=== PATIENT | male | born 1985 | race Caucasian/White ===

== ENCOUNTER 2023-11-26 07:28 | Emergency (ER) | payer BC ==
[2023-11-26] MEDS: Ondansetron 4 MG/2 ML SDV IVPUSH ONE (08:05)
[2023-11-26] MEDS: Albuterol/Ipratropium 3.0-0.5 MG/3 ML Neb Soln NEB ONE ×2 (08:05→08:31)
[2023-11-26] MEDS: Sodium Chloride 0.9% 2.5 ML Syringe FLUSH PRN (08:05)
[2023-11-26] MEDS: Lactated Ringers 1,000 ML IV ONE (08:05)
[2023-11-26 08:06] LABS: BASOPHILS ABSOLUTE AUTO 0.08 K/uL (0.00-0.20); BASOPHILS PERCENT AUTO 1.3 % (0.0-1.0); EOSINOPHILS ABSOLUTE AUTO 0.17 K/uL (0.00-0.45); EOSINOPHILS PERCENT AUTO 2.7 % (0.0-6.0); HEMATOCRIT 46.7 % (42.0-52.0); HEMOGLOBIN 16.2 g/dL (14.0-18.0); IMMATURE GRAN ABSOLUTE AUTO 0.02 K/uL (0.00-0.05); IMMATURE GRAN PERCENT AUTO 0.3 % (0.0-0.4); LYMPHOCYTES ABSOLUTE AUTO 2.67 K/uL (1.00-4.80); LYMPHOCYTES PERCENT AUTO 42.7 % (24.0-44.0); MEAN CORPUSCULAR HEMOGLOBIN 32.1 pg (28.0-32.0); MEAN CORPUSCULAR HGB CONC 34.7 g/dL (32.0-36.0); MEAN CORPUSCULAR VOLUME 92.7 fL (83.0-99.0); MONOCYTES PERCENT AUTO 11.2 % (0.0-8.0); NEUTROPHILS ABSOLUTE AUTO 2.61 K/uL (1.80-7.70); NEUTROPHILS PERCENT AUTO 41.8 % (41.0-71.0); PLATELET COUNT,PLT 270 K/uL (150-400); RED BLOOD CELL COUNT 5.04 M/uL (4.52-5.90); WHITE BLOOD CELL COUNT,WBC 6.25 K/uL (3.9-11.3)
[2023-11-26] MEDS: Sodium Chloride 0.9% 10 ML Syringe FLUSH PRN (08:06)
[2023-11-26 08:29] LABS: A/G RATIO 1.2 (0.9-1.6); ALBUMIN 3.7 g/dL (3.4-5.0); BILIRUBIN TOTAL 0.3 mg/dL (0.2-1.0); CARBON DIOXIDE,CO2 28.5 mmol/L (21.0-32.0); CREATININE 1.1 mg/dL (0.8-1.3); EST CRCL DRUG DOSING (CG) 103.91 mL/min; POTASSIUM,K 3.5 mmol/L (3.5-5.1); PROTEIN TOTAL,TP 6.8 g/dL (6.4-8.2); TSH ULTRASENSITIVE 1.2 uIU/mL (0.36-3.74)
[2023-11-26] MEDS: Acetaminophen 500 MG Tab PO ONE (11:15)
== END 2023-11-26 11:21 ==
LOC: MW.ED 07:28
DX: R00.0 Tachycardia, unspecified (principal); R09.02 Hypoxemia; R05.9 Cough, unspecified; F10.20 Alcohol dependence, uncomplicated; Z79.899 Other long term (current) drug therapy
CPT/HCPCS: 36415; 80053; 80307; 83690; 83735; 84443; 84484; 85025; 85379; 96374; 99285; A9270; J2405; J3490; J7120; J7620-GY